=== PATIENT | female | born 1985 | race Caucasian/White ===

== ENCOUNTER 2017-08-11 21:01 | Emergency (ER) | payer OTHER ==
[~2017-08-11] VITALS: Ht 165.1 cm; Wt 81.6 kg
[2017-08-11 21:44] VITALS: BP 147/86; Ht 165.1 cm; Wt 81.6 kg
== END 2017-08-11 23:08 | disposition home or self-care (01) ==
LOC: ED 21:01
DX: H66.92 Otitis media, unspecified, left ear (principal); B34.9 Viral infection, unspecified

== ENCOUNTER 2018-07-27 00:19 | Emergency (ER) | payer OTHER ==
[~2018-07-27] VITALS: Ht 165.1 cm; Wt 86.6 kg
[2018-07-27 00:29] VITALS: Ht 165.1 cm; Wt 86.6 kg
[2018-07-27 02:17] LABS: microscopic required? YES; urine erythrocyte NEGATIVE (NEGATIVE)
[2018-07-27 02:42] VITALS: BP 119/60
== END 2018-07-27 02:42 | disposition home or self-care (01) ==
LOC: ED 00:19
PROVIDERS: Emergency Medicine
DX: O12.01 Gestational edema, first trimester (principal); O23.41 Unspecified infection of urinary tract in pregnancy, first trimester; R82.71 Bacteriuria; Z3A.12 12 weeks gestation of pregnancy; Z98.890 Other specified postprocedural states
CPT/HCPCS: Q0092

== ENCOUNTER 2019-02-26 19:34 | Emergency (ER) | payer OTHER ==
[~2019-02-26] VITALS: Ht 160 cm; Wt 81.6 kg
[2019-02-26 19:55] VITALS: BP 125/76; Ht 160 cm; Wt 81.6 kg
== END 2019-02-26 21:39 | disposition home or self-care (01) ==
LOC: ED 19:34
DX: H10.9 Unspecified conjunctivitis (principal); Z98.890 Other specified postprocedural states